=== PATIENT | female | born 1995 | race Caucasian/White ===

== ENCOUNTER 2024-08-20 06:04 | Day surgery (SDC) | payer MEDICAID, SELFPAY ==
[2024-08-20] VITALS (9 sets, daily range): BP systolic 106–143; BP diastolic 72–106; PULSE 63–99; RESP 16–18; TEMP 36.7–37.2; O2SAT 95–100; BMI 31.4
[2024-08-20 06:50] LABS: Internal QC Validated? YES +Cl - CLEAR BKGD; Pregnancy, Urine Negative Negative
--- NOTE | 2024-08-20 06:52 | PCM.PRE.AN2 ---
ASA Classification* ASA Classification ASA Classification: 2 Assessment & Plan Anesthesia* Anesthesia Assessment Anesthesia Assessment: Discussed sedation and/or anesthesia options, risks, benefits, and alternatives with patient/parents/legal guardian/POA. Questions invited. The patient/parents/legal guardian/POA seems to understand and agrees to proceed with anesthesia plan. Reviewed the physical assessment, medical history, allergy history and patient home medications list prior to surgery/procedure/anesthetic and documented any changes. Performed airway and anesthesia risk assessments. Anesthesia Type Anesthesia Type: MAC History Source History Obtained from:: Patient and Chart Anesthesia Focused Assessment* Temperature: 98.0 F Pulse Rate: 72 Blood Pressure: 122/80 Respiratory Rate: 16 Pulse Ox: 98 Oxygen Delivery Method: Room Air Airway Assessment Mouth opens: >3 cm Mallampati Score: II Teeth Condition: Caps/Crowns (Patient has several crowns on molars lower jaw. They are tight.) Neck Range of motion (ROM): Full ROM Focused Labs Anesthesia Preop lab: CBC CHEMISTRY COAG Urine Test Negative Negative 08/20/24 06:25 08/20/24 Pre-Assessment Diagnosis/Proposed Procedure Planned Operative Procedure(s): RIGHT THUMB VOLAR A1 KRISTEN RELEASE Anesthesia History Anesthesia History - twist maker: Anesthesia History - twist maker Hx Hospitalization No 08/18/24 12:20 Any Problems With Anesthesia No 08/18/24 12:20 Cholinesterase deficiency No 08/18/24 12:20 You/Your Family Experience No 08/18/24 12:20 fever (hyperthermia) with Relationship Recent Exposure to Contagious No 08/20/24 06:37 Disease Does patient have nerve No 08/18/24 12:20 stimulator Patient instructed to have device shut off --Does patient have Pacemaker No 08/20/24 06:39 or ICD? When Was Last Pacemaker Check QUESTION #4 FULL TEXT: You/Your Family Experience fever (hyperthermia) with Anesthesia Last Oral Intake Last Oral intake: Last Oral Intake NPO since 00:00 08/20/24 06:39 Meds taken in AM with sips of No 08/20/24 06:39 water? Meds patient instructed to take am of surgery PONV PONV - twist maker: PONV - twist maker Female Yes 08/18/24 12:20 HX of Motion Sickness No 08/18/24 12:20 HX of N/V After Surgery No 08/18/24 12:20 Non-Smoker Yes 08/18/24 12:20 Duration of Surgery greater No 08/18/24 12:20 than 60 minutes Number of Risk Factors 2 08/18/24 12:20 PONV Score Moderate Risk 08/18/24 12:20 Height & Weight Height & Weight: Anesthesia: Height & Weight Height 5 ft 4 in 08/20/24 06:39 Weight: 83.1 kg 08/20/24 06:39 Body Mass Index (BMI) 31.4 08/20/24 06:39 Respiratory Assessment Respiratory Assessment - twist maker: Respiratory Tract Infection Hx - twist maker Hx Respiratory Tract Infection No 08/18/24 12:20 STOP Sleep Apnea STOP Sleep Apnea - twist maker: STOP Sleep Apnea - twist maker Hx Hypertension Yes: AGE 19-29 WAS ON MED/ 08/18/24 12:20 LOST WEIGHT Hx Sleep Apnea No 08/18/24 12:20 CPAP BIPAP Do you snore loudly (louder No 08/18/24 12:20 than talking or can be heard Do you often feel tired/ Yes 08/18/24 12:20 fatigued/ sleepy during daytime? Has anyone observed you stop No 08/18/24 12:20 breathing during sleep? STOP Results Positive 08/18/24 12:20 QUESTION #5 FULL TEXT : Do you snore loudly (louder than talking or can be heard through closed doors)? 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 Specify any problems Hx of Preganancy in last 3 No 08/18/24 12:20 Months Nurse Filling Out Transfusion DSCHRIBER 08/18/24 12:20 & Questions: Date: 08/18/24 08/18/24 12:20 Time: 12:22 08/18/24 12:20 Patient unable to answer at this time (ie. confused, unrespo /Reproduction History /Reproductive History - twist maker: /Reproductive Hx- twist maker Hx Now No 08/18/24 12:20 Gestational Age (in weeks): EDC: Hx Hx Para Hx Section SAB No 08/18/24 12:20 Active Medications Active Medications: Current Medications Generic Name Dose Route Start Last Admin Trade Name Freq PRN Reason Stop Dose Admin Cefazolin Sodium 2 gm/ N/A 20 mls @ 400 mls/hr 08/20/24 07:30 IV 08/20/24 07:32 PREOP ONE [facility] Medical History Wears glasses Depression Anxiety Marijuana use Easy bruising Back pain Injury of head and neck Asthma Non-smoker History of edema Cardiology follow-up encounter EDS (Neel-Danlos syndrome) POTS (postural orthostatic tachycardia syndrome) ADD (attention deficit disorder) Trigger thumb, right thumb Home Medications ?Medication ?Instructions ?Recorded ?Last Taken ?Type dextroamphetamine-amphetamine ER 1 cap PO QAM 07/20/24 08/19/24 History 30 mg 24hr capsule,extend release cholecalciferol (vitamin D3) 25 25 mcg PO DAILY 08/18/24 08/19/24 History mcg (1,000 unit) capsule (Vitamin D3) loratadine 10 mg tablet (Claritin) 10 mg PO DAILY 08/18/24 08/19/24 History Allergy/AdvReac Type Severity Reaction Status Date / Time No Known Allergies Allergy Verified 08/18/24 12:18 Surgical History History of carpal tunnel surgery of left wrist History of ankle surgery History of adenoidectomy History of tonsillectomy History of carpal tunnel surgery Social History Smoking Status: Never smoker alcohol intake: former Review of Systems (Anesthesia) ROS Narrative System reviewed and no additional complaints, except as documented.
--- NOTE | 2024-08-20 07:05 | PCM.HP.STD ---
HPI - General HPI Narrative MITRA PEREZ, is a 29 F who presents for right trigger thumb release. no change to h and p. right thumb marked. rab, post op instructions given. will proceed. no further questions. MR#: [id number] Acct: [id number] Name: MITRA PEREZ Rep #: [id number] : 1995 Provider: Dr. Ad Davis MD Age/Sex: 29/F [place] [facility] [place]: Signed Intake Vital Signs 07/20/2512:58 Height 5 ft 4 in Weight: 186 lb 6 oz BMI 32.0 Intake Visit Reasons: thumb pain Chief Complaint: trigger thumb Is patient in pain?: Yes (Right thumb ) Pain scale (1-10): 7 Allergies No Known Allergies Allergy (Unverified 08/09/24 11:02) Medications ?Medication ?Instructions ?Recorded ?Confirmed ?Type dextroamphetamine-amphetamine ER 1 cap PO QAM 07/20/24 08/09/24 History 30 mg 24hr capsule,extend release PFSH Medical History EDS (Neel-Danlos syndrome) POTS (postural orthostatic tachycardia syndrome) ADD (attention deficit disorder) Trigger thumb, right thumb Surgical History History of ankle surgery History of adenoidectomy History of tonsillectomy History of carpal tunnel surgery Social History Smoking Status: Never smoker alcohol intake: former HPI thumb pain Details: This documentation accurately reflects the service provided and the decisions made by me, Dr. Ad Davis MD 08/09/24 [id number]. Part of today?s visit was documented by [ ], acting as scribe. MITRA PEREZ is a 29 year old F here today for follow-up right trigger thumb. Patient wants to proceed with surgery. Still having locking especially when using a pen or pencil. Coding Level of Care Code Off vis,est,level 3 Diagnoses Trigger thumb, right thumb M65.311 Assessment and Plan Assessment and Plan (1) Trigger thumb, right thumb: Status: Acute Plan: MTIRA PEREZ is a 29 year old F here today for follow-up right trigger thumb. Patient wants to proceed with surgery. Booked and consented for right thumb volar A1 oscar release. Specific risks of bowstringing damage to the tendon weakness or other problems. Marijuana smoker may increase risks. Recovery generally 6 weeks. No heavy lifting or gripping after the surgery but okay for gentle range of motion. Patient understands wished to proceed no further questions or concerns. Pros and cons risks and benefits were discussed with the patient including but not limited to infection, pain, stiffness, bleeding, damage to surrounding structures, neurovascular injury, recurrence or retear, failure or wear of hardware or fixation, instability, fracture, deep vein thrombosis and pulmonary embolism, anesthetic risks, , patient dissatisfaction, need for further surgery and other risks. Patient understood and wished to proceed with surgery, and signed the informed consent documentation. Ortho Exam General General: Yes no acute distress Neurologic: Yes alert and Yes oriented x3 Psychologic: Yes reasonable and appropriate Right Wrist/Hand Skin/Wound: Yes CDI, No Swelling, No Ecchymosis, Yes nail intact and Yes capillary refill normal A1 oscar trigger: Yes (thumb) Right Wrist: No Thenar Atrophy or Hypothenar Atrophy Motor: EPL: 5, FDP-2: 5, 1st Dorsal Interosseous: 5 and APB: 5 Sensation: Radial: I, Ulnar: I and Median: I Left Wrist/Hand Skin/Wound: No Swelling and No Ecchymosis [facility] Medical History Wears glasses Depression Anxiety Marijuana use Easy bruising Back pain Injury of head and neck Asthma Non-smoker History of edema Cardiology follow-up encounter EDS (Neel-Danlos syndrome) POTS (postural orthostatic tachycardia syndrome) ADD (attention deficit disorder) Trigger thumb, right thumb Home Medications ?Medication ?Instructions ?Recorded ?Last Taken ?Type dextroamphetamine-amphetamine ER 1 cap PO QAM 07/20/24 08/19/24 History 30 mg 24hr capsule,extend release cholecalciferol (vitamin D3) 25 25 mcg PO DAILY 08/18/24 08/19/24 History mcg (1,000 unit) capsule (Vitamin D3) loratadine 10 mg tablet (Claritin) 10 mg PO DAILY 08/18/24 08/19/24 History Allergy/AdvReac Type Severity Reaction Status Date / Time No Known Allergies Allergy Verified 08/18/24 12:18 Surgical History History of carpal tunnel surgery of left wrist History of ankle surgery History of adenoidectomy History of tonsillectomy History of carpal tunnel surgery Social History Smoking Status: Never smoker alcohol intake: former Vital Signs Vital Signs Vital Signs: 08/20/24 06:37 08/20/24 06:39 08/20/24 06:57 Temperature 98.0 F 98.0 F Temperature Source Temporal Pulse Rate 72 72 Respiratory Rate 16 16 Respiratory Pattern Normal Blood Pressure 122/80 H 122/80 H Blood Pressure Mean 94 Blood Pressure Source Monitor Blood Pressure Position Semi-Fowlers Blood Pressure Location Left Arm Pulse Ox 98 98 Oxygen Delivery Method Room Air Room Air Weight Weight: 183 lb 3.266 oz Body Mass Index (BMI) 31.4 Results Lab / Micro Data Labs: Laboratory Results - last 24 hr 08/20/24 06:25: Urine Test Negative
[2024-08-20] MEDS: Cefazolin 2 GM in Syringe IV (07:22)
[2024-08-20] MEDS: Bupivacaine Mpf 0.5% 30 ML VIAL (07:39)
--- NOTE | 2024-08-20 07:52 | PCM.OPRPT ---
Problems Associated Problem List Diagnoses (1) Trigger thumb, right thumb: Procedures Musculoskeletal [id number]-29xxx: Other Procedure See Report Operative Report (Standard) Operative Information Date of Procedure: 08/20/24 Pre-Operative Diagnosis: R trigger thumb Post-Operative Diagnosis: same Surgery/Procedure Performed: Right thumb volar a1 oscar release fire management officer: No Type of Anesthesia: Local MAC RN Documented Start/Stop Times: Operation Date: 08/20/24 07:30 Case Time Into Pre-Op 08/20/24 06:12 Out of Pre-Op 08/20/24 07:15 Anesthesia Start 08/20/24 07:18 Into Room 08/20/24 07:18 Procedure Start 08/20/24 07:35 Procedure Start Time: 07:35 Procedure Stop Time: 07:48 Select all DRAINS/GRAFTS/IMPLANTS that apply: None Estimated Blood Loss: 5 Specimen collected: No Description of surgery: Patient brought to the operating room theater. Placed supine on the table. Local/MAC anesthesia. Tourniquet applied to the upper extremity appropriately padded. Upper extremity prepped and draped with chlorhexidine-based prep solution in the usual sterile fashion allowing over 3 minutes drying time prior to draping. Bed turned 90 degrees. Hand table used to the patient's right side. SCDs on the legs. Preoperative timeout performed to confirm the site patient and the surgery. Began by elevating the limb inflated the tourniquet to 250 mmHg. 1cc 0.5% bupivicane. Did a transverse incision at the base of the thumb on the right side where the thumb joins onto the hand. Carried the dissection down through skin and subtenons tissue achieved meticulous hemostasis. Protected the radial sensory nerve. Incised the A1 oscar along its length. Ensured that there is no catching or locking of the tendon. Tendon was intact. There was some mild degenerative changes at the A1 oscar area of the tendon. I ensured to fully deliver the tendon through the incision and ensure that the tendon was intact and the A1 oscar fully released. Patient was able to bend and straighten the thumb with no locking visible. Tourniquet let down wound thoroughly irrigated using normal saline. Subcutaneous tissue closed with 3-0 Vicryl suture and skin with 3-0 Monocryl and skin cleaned with wet dry dressing followed application of Dermabond Adaptic 4 x 4 gauze and Ulisses wrap for the hand and thumb. Patient woken up transferred off the operating room table taken to postanesthetic care unit in stable condition. All sponge needle instrument counts were correct no complications plan for the patient discharged home according to day surgery criteria follow-up in the office within 2 weeks. CPT 83623 Surgical Findings: trigger thumb R Complications Complications: No Admit VTE Documentation VTE Present on Admission: No VTE Mechan Device Prophylaxis: SCD's VTE Pharm Prophylaxis ordered?: No Reason prophylaxis not ordered: Treatment Not Indicated
--- NOTE | 2024-08-20 07:58 | EX.PCM.DISCH ---
Discharge Instructions Diet Discharge Diet: No restrictions Activity Discharge Activity: Return to Normal Activity Lifting Restrictions: no heavy lifting or gripping Keep extremity elevated above heart level: Operative Extremity Additional Activity Instructions:: no repetitive thumb motion Dressing / Incision Call your doctor if your incision/area has: Continuous Slow Oozing, Sudden Increased Bleeding, Increased Pain/ Swelling, Increased Redness, Foul Smelling Discharge and Swelling at the incision site Call your doctor if you observe: Fever of 101 or Higher, Coldness, Increased Pain and Numbness or Tingling Cleanse incision/area with: Do not get Incision Wet Follow Up Care Please Follow Up With: Ad Davis MD When: within 2 weeks Test Results: Test results from this visit will be discussed in further detail at your follow-up appointment, if applicable. Discharge Plan Admission Attending Provider: Ad Davis Primary Care Provider: Jordon Westbrook Instructions Print Language: Croatian Discharge Orders/Prescriptions Prescriptions: No Action dextroamphetamine-amphetamine 30 mg capsule,extended release 24hr 1 cap PO QAM cholecalciferol (vitamin D3) [Vitamin D3] 25 mcg (1,000 unit) capsule 25 mcg PO DAILY loratadine [Claritin] 10 mg tablet 10 mg PO DAILY Referrals / Follow Up: Ad Davis MD [Med Staff - Active Staff] - Jordon Westbrook MD [Primary Care Provider] - Disposition Disposition (needs filled in before D/C Order can be placed): Home, Self Care
--- NOTE | 2024-08-20 07:58 | PCM.POST.ANE ---
Anesthesia: Postop Eval I Current Vital Signs Temperature: 98.4 F Pulse Rate: 99 Blood Pressure: 143/106 (patient shaking) Respiratory Rate: 18 Pulse Ox: 100 Assessment Airway patent: Yes Spontaneous unlabored respirations: Yes nausea: Yes Vomiting: No Anesthesia Complication: No Fluid Hydration Crystalloid volume administer (ml): 40 Total IV fluid infused: 40 Progress Note Anesthesia document: Postop Eval 1 completed: Yes
--- NOTE | 2024-08-20 08:12 | POSTOPAN2_ITS ---
Anesthesia Postop Eval I Sum Postop Eval Completion status Anesthesia document: Postop Eval 1 completed: Yes Anesthesia Postop Eval I Summary Anesthesia Postop Eval I Summary: Anesthesia Postop Eval I: Assessment Summary Airway patent Yes 08/20/24 07:58 ELECTRIC RAZOR ASSEMBLER.CSIR Spontaneous unlabored Yes 08/20/24 07:58 ELECTRIC RAZOR ASSEMBLER.CSIR respirations Mental status nausea Yes 08/20/24 07:58 ELECTRIC RAZOR ASSEMBLER.CSIR Vomiting No 08/20/24 07:58 ELECTRIC RAZOR ASSEMBLER.CSIR Anesthesia Postop Eval I: Fluid Summary Crystalloid volume administer 40 08/20/24 07:58 ELECTRIC RAZOR ASSEMBLER.CSIR (ml) Colloids volume administered ( ml) Blood Product volume administered (ml) Total IV fluid infused 40 08/20/24 07:58 ELECTRIC RAZOR ASSEMBLER.CSIR Anesthesia Postop Eval I: Summary Notes Anesthesia Complication No 08/20/24 07:58 ELECTRIC RAZOR ASSEMBLER.CSIR Anesthesia Complication Comment: Post-operative progress note Anesthesia: Postop Eval II Evaluation Mental status: Awake Pain Level: 0 nausea: No Vomiting: No
--- NOTE | 2024-08-20 08:12 | PCM.POSTANE2 ---
Anesthesia Postop Eval I Sum Postop Eval Completion status Anesthesia document: Postop Eval 1 completed: Yes Anesthesia Postop Eval I Summary Anesthesia Postop Eval I Summary: Anesthesia Postop Eval I: Assessment Summary Airway patent Yes 08/20/24 07:58 EDUCATION ADMINISTRATOR.CSIR Spontaneous unlabored Yes 08/20/24 07:58 EDUCATION ADMINISTRATOR.CSIR respirations Mental status nausea Yes 08/20/24 07:58 EDUCATION ADMINISTRATOR.CSIR Vomiting No 08/20/24 07:58 EDUCATION ADMINISTRATOR.CSIR Anesthesia Postop Eval I: Fluid Summary Crystalloid volume administer 40 08/20/24 07:58 EDUCATION ADMINISTRATOR.CSIR (ml) Colloids volume administered ( ml) Blood Product volume administered (ml) Total IV fluid infused 40 08/20/24 07:58 EDUCATION ADMINISTRATOR.CSIR Anesthesia Postop Eval I: Summary Notes Anesthesia Complication No 08/20/24 07:58 EDUCATION ADMINISTRATOR.CSIR Anesthesia Complication Comment: Post-operative progress note Anesthesia: Postop Eval II Evaluation Mental status: Awake Pain Level: 0 nausea: No Vomiting: No
[2024-08-20] MEDS: HYDROcodone Bitartrate/Apap 5/325 Tablet PO (08:28)
== END 2024-08-20 08:51 | disposition home or self-care (01) ==
LOC: SDC 06:07 → AC 06:09
PROVIDERS: Anesthesiology; PCP Internal Medicine; Referring Provider Orthopaedic Surgery Sports Medicine; Visit Provider Orthopaedic Surgery Sports Medicine
PROC: (CPT 26055; principal; 2024-08-20 07:20)
DX: M65.311 Trigger thumb, right thumb (principal)
CPT/HCPCS: 26055; 01810; 81025; A4216; J2405